=== PATIENT | male | born 1970 ===

== ENCOUNTER 2020-03-08 12:03 | Inpatient (IN) ==
[2020-03-08] MEDS ORDERED: NS 0.9% 1000 ml BAG 1,000 ML IV.FLUID IV ONE (12:26)
[2020-03-08] MEDS ORDERED: LACTATED RINGERS IV SCH (13:00)
[2020-03-08 13:25] LABS: Hematocrit 43 % (42-52); Hemoglobin 14.6 g/dL (14.0-18.0); Mean Corpuscular HGB Conc 34 g/dL (31-36); Mean Corpuscular Hemoglobin 29 pg (27-31); Mean Corpuscular Volume 85 fL (80-94); Mean Platelet Volume 8.8 fL (7.4-10.4); Platelet Count 150 10^3/uL (150-450); Red Cell Distribution Width 14 % (10-15); White Blood Count 16.3 10^3/uL (3.5-10.8)
[2020-03-08 13:42] LABS: Albumin 4.1 g/dL (3.2-5.2); Albumin/Globulin Ratio 1.7 (1-3); BUN/Creatinine Ratio 12.9 (8-20); C Reactive Protein 110.19 mg/L (<8.01); Calcium 8.2 mg/dL (8.6-10.3); EGFR African American 69.2 (>60); EGFR Non-African American 57.2 (>60); Globulin 2.4 g/dL (2-4); Potassium 3.2 mmol/L (3.5-5.0); Total Bilirubin 0.7 mg/dL (0.2-1.0); Total Protein 6.5 g/dL (6.4-8.9)
[2020-03-08 13:44] LABS: Troponin I 0.01 ng/mL (<0.03)
[2020-03-08 13:58] LABS: Activated Partial Thrombo Time 29.5 seconds (26.0-38.0); INR 1.49 (0.82-1.09)
[2020-03-08 14:16] LABS: ABS Lymphocytes 0.7 10^3/ul (1.0-4.8); Lymphocyte % 4.1 %
[2020-03-08] MEDS ORDERED: Potassium Chlor 10 meq TAB PO ONE (14:21)
[2020-03-08] MEDS ORDERED: Magnesium Sulfate 2 gm BAG 2 GM/50 ML BAG IVPB ONE (14:23)
[2020-03-08] MEDS ORDERED: LACTATED RINGERS IV ONE (15:00)
[2020-03-08] MEDS ORDERED: Al Hydrox/Mg Hydrox/Simet LIQ 30 ML UDC PO PRN (16:06)
[2020-03-08] MEDS ORDERED: KCL 20 MEQ/100 ML IVPREMIX 20 MEQ/100 ML BAG IV ONE (16:20)
[2020-03-08] MEDS: KCL 20 MEQ/100 ML IVPREMIX 20 MEQ/100 ML BAG IV SCH ×2 (16:28→21:17)
[2020-03-08] MEDS ORDERED: Enoxaparin 40 MG/0.4 ML SYR(*) SUBCUT SCH (17:00)
[2020-03-08] MEDS: NS 0.9% 1000 ml BAG 1,000 ML IV SCH (18:17)
[2020-03-08 19:00] LABS: Urine Appearance Cloudy; Urine Bilirubin Negative (Negative); Urine Blood 2+ (Negative); Urine Color Yellow; Urine Glucose Negative (Negative); Urine Ketones Trace (Negative); Urine Nitrite Negative (Negative); Urine Protein 2+(100 mg/dL) (Negative); Urine Specific Gravity 1.012 (1.010-1.030); Urine Urobilinogen Negative (Negative)
[2020-03-08 19:04] LABS: Urine Bacteria 1+ (Absent); Urine Red Blood Cell 3+(>10/hpf) (Absent); Urine Squamous Epithelial Cell Present (Absent); Urine White Blood Cell 3+(>20/hpf) (Absent)
[2020-03-08 20:11] LABS: Fibrinogen 473.2 mg/dL (110.8-404.3)
[2020-03-08 20:22] LABS: Ferritin 99.9 ng/mL (24-336)
[2020-03-08] MEDS: OXcarbazepine 300 mg TAB (*) PO SCH (21:18)
[2020-03-08] MEDS: Ondansetron 4 mg VIAL 2 MG/ML 2 ml VIAL IV PRN (21:19)
[2020-03-09] MEDS: Ondansetron 4 mg VIAL 2 MG/ML 2 ml VIAL IV PRN (04:26)
[2020-03-09] MEDS: NS 0.9% 1000 ml BAG 1,000 ML IV SCH ×2 (04:26→13:02)
[2020-03-09 06:46] LABS: Hematocrit 36 % (42-52); Hemoglobin 12.3 g/dL (14.0-18.0); Mean Corpuscular HGB Conc 34 g/dL (31-36); Mean Corpuscular Hemoglobin 29 pg (27-31); Mean Corpuscular Volume 85 fL (80-94); Mean Platelet Volume 8.7 fL (7.4-10.4); Platelet Count 123 10^3/uL (150-450); Red Blood Count 4.24 10^6 /uL (4.18-5.48); Red Cell Distribution Width 14 % (10-15); White Blood Count 13.5 10^3/uL (3.5-10.8)
[2020-03-09 06:48] LABS: ABS Lymphocytes 0.8 10^3/ul (1.0-4.8); ABS Monocytes 1.9 10^3/ul (0-0.8); Lymphocyte % 5.7 %
[2020-03-09 07:03] LABS: BUN/Creatinine Ratio 11.8 (8-20); Calcium 7.9 mg/dL (8.6-10.3); EGFR African American 93.2 (>60); Potassium 3.5 mmol/L (3.5-5.0)
[2020-03-09] MEDS: Venlafaxine XR 75 mg PO SCH (08:03)
[2020-03-09] MEDS: OXcarbazepine 300 mg TAB (*) PO SCH ×2 (08:04→22:16)
[2020-03-09] MEDS: Enoxaparin 60 MG/0.6 ML SYR(*) SUBCUT SCH (12:58)
[2020-03-10] MEDS: Enoxaparin 60 MG/0.6 ML SYR(*) SUBCUT SCH ×3 (01:00→22:15)
[2020-03-10] MEDS: NS 0.9% 1000 ml BAG 1,000 ML IV SCH (01:04)
[2020-03-10] MEDS: Venlafaxine XR 75 mg PO SCH (07:35)
[2020-03-10] MEDS: OXcarbazepine 300 mg TAB (*) PO SCH ×2 (07:35→22:17)
[2020-03-10 13:23] LABS: ABS Eosinophils 0.1 10^3/ul (0-0.6); ABS Monocytes 1.2 10^3/ul (0-0.8); Eosinophil % 1.6 %; Hematocrit 36 % (42-52); Hemoglobin 11.7 g/dL (14.0-18.0); Lymphocyte % 13.1 %; Mean Corpuscular HGB Conc 33 g/dL (31-36); Mean Corpuscular Hemoglobin 28 pg (27-31); Mean Corpuscular Volume 86 fL (80-94); Mean Platelet Volume 9.2 fL (7.4-10.4); Platelet Count 122 10^3/uL (150-450); Red Blood Count 4.13 10^6 /uL (4.18-5.48); Red Cell Distribution Width 15 % (10-15); White Blood Count 7.9 10^3/uL (3.5-10.8)
[2020-03-10 13:29] LABS: Albumin 3.2 g/dL (3.2-5.2); Albumin/Globulin Ratio 1.6 (1-3); BUN/Creatinine Ratio 10.7 (8-20); Calcium 7.9 mg/dL (8.6-10.3); EGFR African American 116.6 (>60); EGFR Non-African American 96.3 (>60); Potassium 4.1 mmol/L (3.5-5.0); Total Bilirubin 0.2 mg/dL (0.2-1.0); Total Protein 5.2 g/dL (6.4-8.9)
[2020-03-10] MEDS: Ciprofloxacin 400mg IVPREMIX 400 MG/200 ML BAG IVPB SCH (22:17)
[2020-03-11] MEDS: NS 0.9% 1000 ml BAG 1,000 ML IV SCH (03:41)
[2020-03-11] MEDS: Venlafaxine XR 75 mg PO SCH (08:04)
[2020-03-11] MEDS: OXcarbazepine 300 mg TAB (*) PO SCH ×2 (08:04→19:54)
[2020-03-11] MEDS: Ciprofloxacin 400mg IVPREMIX 400 MG/200 ML BAG IVPB SCH (08:08)
[2020-03-11] MEDS: Enoxaparin 60 MG/0.6 ML SYR(*) SUBCUT SCH ×2 (08:11→19:54)
[2020-03-12] MEDS: Enoxaparin 60 MG/0.6 ML SYR(*) SUBCUT SCH (09:19)
[2020-03-12] MEDS: Venlafaxine XR 75 mg PO SCH (09:22)
[2020-03-12] MEDS: OXcarbazepine 300 mg TAB (*) PO SCH (09:22)
[2020-03-12 15:17] VITALS: BP 148/84
== END 2020-03-12 16:10 | disposition home or self-care (01) | DRG 720 ==
LOC: ED 12:03 → MED 16:06
PROVIDERS: ADMIT Internal Medicine; ATTEND Internal Medicine